=== PATIENT | female | born 1970 | race Hispanic/Latino ===

== ENCOUNTER 2017-10-06 21:41 | Emergency (ER) | payer SELFPAY ==
[2017-10-06] MEDS ORDERED: methylPREDNISolone Acetate 40 mg/ml Vial ONE (22:10)
== END 2017-10-06 22:28 | disposition home or self-care (01) ==
LOC: NAV ERS 21:41
DX: L50.0 Allergic urticaria (principal); E78.5 Hyperlipidemia, unspecified; F32.9 Major depressive disorder, single episode, unspecified
CPT/HCPCS: 96372; J1030

== ENCOUNTER 2022-05-03 10:31 | Emergency (ER) | payer SELFPAY | END 2022-05-03 11:35 | disposition home or self-care (01) | LOC: NAV ERS 10:31 | DX: S80.11XA Contusion of right lower leg, initial encounter (principal); E78.00 Pure hypercholesterolemia, unspecified; E11.9 Type 2 diabetes mellitus without complications; Z79.84 Long term (current) use of oral hypoglycemic drugs; W22.8XXA Striking against or struck by other objects, initial encounter ==

== ENCOUNTER 2022-08-19 01:59 | Emergency (ER) | payer SELFPAY ==
[2022-08-19 02:23] LABS: #Basophils 0.1 thou/uL (0.0-0.2); #Eosinphils 0.4 thou/uL (0.0-0.7); #Lymphocytes 4.2 thou/uL (1.20-3.40); #Monocytes 0.5 thou/uL (0.11-0.59); #Neutrophils 5.3 thou/uL (1.40-6.50); %Basophils 0.9 % (0.0-1.0); %Lymphocytes 39.7 % (21.0-51.0); %Monocytes 4.9 % (0.0-10.0); %Neutrophils 50.6 % (42.0-75.0); Hemoglobin 15.5 g/dL (12.0-16.0); Mean Corpuscular HGB CONC 32.6 g/dL (32.0-36.0); Mean Corpuscular Volume 92.1 fl (78.0-98.0); Mean Platelet Volume 8.2 fL (7.4-10.4); Platelet Count 264 10x3/uL (130-400); RBC Distribution Width 12.9 % (11.5-14.5); Red Blood Cell (RBC) Count 5.16 mill/uL (4.20-5.40); White Blood Cell (WBC) Count 10.5 10x3/uL (4.8-10.8)
[2022-08-19] MEDS ORDERED: Ondansetron PF 4 MG/2 ML Vial ONE (02:28)
[2022-08-19] MEDS ORDERED: Morphine 4 MG/ML VIAL ONE (02:28)
[2022-08-19] MEDS ORDERED: Ketorolac Tromethamine 30 MG/ML VIAL ONE (02:28)
[2022-08-19] MEDS ORDERED: Sodium Chloride 0.9% 1,000 ML ONE (02:28)
[2022-08-19 02:41] LABS: ALT (SGPT) 25 U/L (8-55); AST (SGOT) 20 U/L (5-34); Alkaline Phosphatase 117 U/L (40-110); Anion Gap 13 mmol/L (10-20); BUN (Urea Nitrogen) 17 mg/dL (9.8-20.1); Bilirubin, Total 0.4 mg/dL (0.2-1.2); Calc. Creatinine Clearance 0 mL/min (70-130); Calcium 9.8 mg/dL (7.8-10.44); Carbon Dioxide 26 mmol/L (22-29); Chloride 104 mmol/L (98-107); Estimated GFR 85; Globulin 3.7 g/dL (2.4-3.5); Glucose 145 mg/dL (70-105); Potassium 3.6 mmol/L (3.5-5.1); Protein, Total 7.7 g/dL (6.0-8.3); Sodium 139 mmol/L (136-145)
[2022-08-19 03:03] LABS: CK (CPK) 197 U/L (29-168); Lipase 55 U/L (8-78)
[2022-08-19 04:19] LABS: Bilirubin Negative (Negative); Blood, Urine Small (Negative); Clarity Clear (Clear); Glucose, Urine (Dipstick) Negative (Negative); Ketone, Urine Negative (Negative); Leukocyte Negative (Negative); Nitrite Negative (Negative); Protein, Urine (Dipstick) 30 mg/dL (Neg-Trace); Urobilinogen 0.2 mg/dL (Less than 2)
[2022-08-19 04:24] LABS: Bacteria/HPF None Seen HPF (None Seen); RBC/HPF 0-3 HPF (0-3); WBC/HPF 0-3 HPF (0-3)
[2022-08-19] MEDS ORDERED: Iopamidol 370 76% 100 ML VIAL ONE (09:00)
== END 2022-08-19 08:35 | disposition home or self-care (01) ==
LOC: NAV ERS 01:59
DX: K42.9 Umbilical hernia without obstruction or gangrene (principal); E78.00 Pure hypercholesterolemia, unspecified; E11.9 Type 2 diabetes mellitus without complications
CPT/HCPCS: 74177; 80053; 81003; 81015; 82550; 83690; 85025; 96374; 96375; J1885; J2270; J2405; J7050; Q9967